=== PATIENT | female | born 1980 | race Caucasian/White ===

== ENCOUNTER 2019-06-18 09:32 | Emergency (ER) | payer BC ==
[2019-06-18 10:07] LABS: BHCG - Serum Negative (NEGATIVE); Pregs Control Background? CLEAR/WHITE (CLR/WHITE); Pregs Control Bar Appear? YES (CONTROL BAR)
[2019-06-18 10:12] LABS: Hemoglobin 14.5 g/dL (12.0-16.0); INR-International Normal Ratio 0.9; Mean Corpuscular HGB CONC 33.9 g/dL (32.0-36.0); Mean Corpuscular Hemoglobin 32.1 pg (27.0-31.0); Mean Corpuscular Volume 94.6 fL (78.0-98.0); Mean Platelet Volume 6.4 fL (7.4-10.4); Platelet Count 240 thou/uL (130-400); Prothrombin Time 12.4 SEC (12.0-14.7); Red Blood Cell (RBC) Count 4.51 mill/uL (4.20-5.40); White Blood Cell (WBC) Count 5.3 thou/uL (4.8-10.8)
[2019-06-18 10:14] LABS: ALT (SGPT) 15 U/L (8-55); Albumin 4.3 g/dL (3.5-5.0); Alkaline Phosphatase 69 U/L (40-110); Anion Gap 17 mmol/L (10-20); BUN (Urea Nitrogen) 15 mg/dL (7.0-18.7); Bilirubin, Total 1.9 mg/dL (0.2-1.2); Calc. Creatinine Clearance 0 mL/min (70-130); Calcium 9.4 mg/dL (7.8-10.44); Carbon Dioxide 22 mmol/L (22-29); Chloride 106 mmol/L (98-107); Estimated GFR-MDRD 76; Globulin 3.1 g/dL (2.4-3.5); Glucose 99 mg/dL (70-105); Protein, Total 7.4 g/dL (6.0-8.3); Sodium 140 mmol/L (136-145)
[2019-06-18 10:16] LABS: AST (SGOT) 19 U/L (5-34)
[2019-06-18 10:30] LABS: Lymphocytes 23 % (21-51); MDiff Complete? YES; Monocytes 6 % (0-10); Neutrophil 71 % (42-75); Platelet Morphology Comment Appears Adequate; RBC Morphology Normal
--- NOTE | 2019-06-18 11:00 | CT ---
Exam: Head CT without contrast HISTORY: Right-sided symptoms. Right-sided paresthesia and numbness. Previously noted weakness and fa cial droop have resolved. Symptoms began at 2200 hours yesterday COMPARISON: none FINDINGS: Hemorrhage: No intraparenchymal hemorrhage or extra-axial hematoma. Brain parenchyma: Cortical fields-white matter differentiation is preserved. No mass effect or midline shift. Basilar cisterns are patent. Ventricular system: Ventricles and sulci are patent and symmetric. Calvarium: Intact. Sinuses and mastoid air cells: Adequate aeration. IMPRESSION: No acute intracranial process.
--- NOTE | 2019-06-18 11:59 | MRI ---
Exam: Brain MRI with and without contrast HISTORY: Paresthesia. Evaluate for TIA versus stroke. COMPARISON: None FINDINGS: Gradient echo sequence: No hemorrhage Calvarium: Appropriate T1 marrow signal intensity Midline brain parenchyma: Unremarkable Cerebrum:No parenchymal mass, mass effect or midline shift. Brain volume is age-appropriate. Cortical fields-white matter differentiation is preserved. There are a few bifrontal subcortical T2 and FLAIR white matter hyperintensities, nonspecific. No associated restricted diffusion or enhancement. Ventricles: No evidence of hydrocephalus. Sinuses and mastoid air cells: Adequate aeration Diffusion: Central arterial flow is maintained. Absent restricted diffusion. Postcontrast images: No pathologic enhancement of the brain parenchyma. IMPRESSION: 1. No pathologic enhancement of the brain parenchyma. 2. Absent restricted diffusion. No acute infarct. 3. Nonspecific left and right frontal subcortical T2 and FLAIR white matter hyperintensities. No asso ciated restricted diffusion or enhancement. Differential considerations include sequelae of vasculitis, migraine headaches, Lyme disease, demyelinating processes other than multiple sclerosis. Correlate clinically.
[2019-06-18] MEDS ORDERED: Aspirin 325 MG TAB ONE (12:25)
== END 2019-06-18 12:34 | disposition home or self-care (01) ==
LOC: SCSER 09:32
DX: R20.2 Paresthesia of skin (principal); G40.909 Epilepsy, unspecified, not intractable, without status epilepticus
CPT/HCPCS: 36416; 70450; 70553; 80053; 84484; 84703; 85025; 85610; 93005